=== PATIENT | male | born 1945 | race Caucasian/White ===

== ENCOUNTER 2020-09-06 22:13 | Emergency (ER) | payer MEDICARE ==
[2020-09-06 23:25] LABS: BASOPHILS % (AUTO) 0.9 % (0.0-5.0); EOSINOPHILS % (AUTO) 2.8 % (0.0-8.0); HEMATOCRIT 36.6 % (42-54); LYMPHOCYTES % (AUTO) 17.3 % (21.0-51.0); MEAN CORPUSCULAR HEMOGLOBIN 29.7 pg (27.0-33.0); MEAN CORPUSCULAR HGB CONC 34.4 g/dL (32.0-36.0); MEAN CORPUSCULAR VOLUME 86.3 fL (79-99); MONOCYTES % (AUTO) 7.1 % (3.0-13.0); NEUTROPHILS % (AUTO) 71.1 % (40.0-77.0); PLATELET COUNT (AUTO) 243 K/uL (130-400); RED BLOOD CELL COUNT(AUTO) 4.24 MIL/uL (4.50-6.20); RED CELL DISTRIBUTION WIDTH 13.3 % (11.0-15.5); WHITE BLOOD COUNT (AUTO) 11.4 K/uL (4.8-10.8)
[2020-09-06] MEDS ORDERED: SODIUM CHLORIDE 0.9% 50 ML IV ONE (23:42)
[2020-09-06] MEDS ORDERED: CEFTRIAXONE SODIUM 2 GM VIAL ONE (23:42)
[2020-09-06 23:43] LABS: B-TYPE NATRIURETIC PEPTIDE 9 pg/mL (0-100); POTASSIUM 3.8 mmol/L (3.5-5.1)
[2020-09-06 23:45] LABS: ALBUMIN 3.8 g/dL (3.5-5.0); BILIRUBIN,TOTAL 0.3 mg/dL (0.2-1.0); TOTAL PROTEIN, SERUM 6.6 g/dL (6.0-8.3)
== END 2020-09-07 00:23 | disposition home or self-care (01) ==
LOC: EDH 22:13
DX: L03.115 Cellulitis of right lower limb (principal); I10 Essential (primary) hypertension; K21.9 Gastro-esophageal reflux disease without esophagitis; Z87.891 Personal history of nicotine dependence; Z98.890 Other specified postprocedural states
CPT/HCPCS: 36415; 80053; 83605; 83880; 85025; 87040 ×2; 93970; 96365; 99284; J0696

== ENCOUNTER 2020-09-08 09:08 | Inpatient (IN) | payer MEDICARE ==
[~2020-09-08] VITALS: Ht 167.6 cm; Wt 79.8 kg
[2020-09-08 09:47] LABS: BASOPHILS % (AUTO) 0.7 % (0.0-5.0); EOSINOPHILS % (AUTO) 2.8 % (0.0-8.0); HEMATOCRIT 38.5 % (42-54); LYMPHOCYTES % (AUTO) 16.1 % (21.0-51.0); MEAN CORPUSCULAR HGB CONC 33.8 g/dL (32.0-36.0); MEAN CORPUSCULAR VOLUME 85.9 fL (79-99); MONOCYTES % (AUTO) 7.6 % (3.0-13.0); PLATELET COUNT (AUTO) 250 K/uL (130-400); RED BLOOD CELL COUNT(AUTO) 4.48 MIL/uL (4.50-6.20); RED CELL DISTRIBUTION WIDTH 13.3 % (11.0-15.5); WHITE BLOOD COUNT (AUTO) 11.6 K/uL (4.8-10.8)
[2020-09-08 10:53] LABS: POTASSIUM 3.7 mmol/L (3.5-5.1)
[2020-09-08 11:04] LABS: ALBUMIN 3.8 g/dL (3.5-5.0); BILIRUBIN,TOTAL 0.3 mg/dL (0.2-1.0); TOTAL PROTEIN, SERUM 6.6 g/dL (6.0-8.3)
[2020-09-08] MEDS ORDERED: LACTULOSE 20 GM/30 ML UDCUP PO PRN (11:15)
[2020-09-08] MEDS: CEFAZOLIN SODIUM 1 GM VIAL IVP SCH ×2 (11:15→19:15)
[2020-09-08] MEDS ORDERED: ACETAMINOPHEN 325 MG TAB PO PRN ×2 (11:15)
[2020-09-08] MEDS ORDERED: VANCOMYCIN 1G/250ML KIT 250 ML IV SCH (11:15)
[2020-09-08] MEDS ORDERED: ACETAMINOPHEN WITH CODEINE 1 TAB TAB PO PRN ×2 (11:15)
[2020-09-08] MEDS ORDERED: VANCOMYCIN PROTOCOL PER PHARMACY IV PRN (11:15)
[2020-09-08] MEDS ORDERED: ONDANSETRON 4MG INJ IV PRN (11:15)
[2020-09-08] MEDS ORDERED: ZOSYN 3.375GM+NS 50ML 50 ML IV ONE (11:17)
[2020-09-08] MEDS ORDERED: VANCOMYCIN 1G/250ML KIT 250 ML IV ONE (11:29)
[2020-09-08] MEDS ORDERED: CEFAZOLIN SODIUM 1 GM VIAL ONE (11:29)
[2020-09-08] MEDS ORDERED: VANCOMYCIN PROTOCOL PER PHARMACY IV SCH (11:30)
[2020-09-08] MEDS ORDERED: 0.9%NACL 50ML 50 ML IV ONE (11:30)
[2020-09-08 11:53] LABS: ALBUMIN 3.7 g/dL (3.5-5.0)
[2020-09-08] MEDS: VANCOMYCIN 1G/250ML KIT 250 ML IV SCH (12:00)
[2020-09-08 12:17] LABS: CRP QUANTITATIVE < 2.00 mg/L (0.00-9.0)
[2020-09-08 18:28] LABS: APPEARANCE,URINE Clear (CLEAR); BILIRUBIN,URINE Negative (NEGATIVE); COLOR,URINE Yellow (YELLOW); GLUCOSE, URINE (UA) Negative (NEGATIVE); KETONES,URINE Trace mg/dL (NEGATIVE); LEUKOCYTE ESTERASE ,URINE Negative (NEGATIVE); NITRATE,URINE Negative (NEGATIVE); OCCULT BLOOD,URINE Negative (NEGATIVE); PROTEIN,URINE Negative (NEGATIVE)
[2020-09-08] MEDS: FUROSEMIDE 20MG VIAL IV SCH (21:00)
[2020-09-08] MEDS: SIMVASTATIN 10 MG TABLET PO SCH (21:00)
[2020-09-08] MEDS: FAMOTIDINE 20MG TAB PO SCH (21:00)
[2020-09-08 22:25] VITALS: BP 208/80
[2020-09-08] MEDS ORDERED: LABETALOL 20MG SYG IV SCH (23:45)
[2020-09-08 23:50] VITALS: BP 178/74
[2020-09-09] MEDS ORDERED: HYDR-4457 PO (00:29)
[2020-09-09] MEDS ORDERED: 0.9% NACL 250ML 250 ML IV ONE (01:29)
[2020-09-09] MEDS ORDERED: HYDRALAZINE 25MG TABLET ONE (01:38)
[2020-09-09] MEDS: VANCOMYCIN 1G/250ML KIT 250 ML IV SCH ×2 (01:42→13:10)
[2020-09-09] MEDS ORDERED: HYDRALAZINE 25MG TABLET PO SCH (01:45)
[2020-09-09] MEDS: CEFAZOLIN SODIUM 1 GM VIAL IVP SCH ×3 (03:47→18:36)
[2020-09-09 04:29] VITALS: BP 144/63
[2020-09-09 07:53] VITALS: BP 189/62
[2020-09-09] MEDS ORDERED: AMLODIPINE 5 MG TAB PO SCH (09:00)
[2020-09-09] MEDS: MONTELUKAST SODIUM 10 MG TAB PO SCH (09:00)
[2020-09-09] MEDS: LISINOPRIL 40 MG TABLET PO SCH (09:01)
[2020-09-09] MEDS: HYDROCODONE/ACETAMINOPHEN 5/325 MG TAB PO PRN ×2 (09:01→20:17)
[2020-09-09] MEDS: ASPIRIN 325MG EC TAB PO SCH (09:01)
[2020-09-09] MEDS: PANTOPRAZOLE 40 MG TAB DR PO SCH (09:01)
[2020-09-09] MEDS: FUROSEMIDE 20MG VIAL IV SCH (09:01)
[2020-09-09] MEDS: FAMOTIDINE 20MG TAB PO SCH ×2 (09:01→20:16)
[2020-09-09] MEDS: ENOXAPARIN SODIUM 40 MG/0.4 ML SYRINGE SQ SCH (09:02)
[2020-09-09 11:30] VITALS: BP 188/83
[2020-09-09] MEDS ORDERED: FLUTICASONE PROPIONATE 50MCG/SPRAY 16 GM BOTTLE EN PRN (14:30)
[2020-09-09 16:00] VITALS: BP 185/82
[2020-09-09] MEDS ORDERED: HYDRALAZINE HCL 10 MG TABLET PO SCH (16:00)
[2020-09-09 20:10] VITALS: BP 148/72
[2020-09-09] MEDS: SIMVASTATIN 10 MG TABLET PO SCH (20:18)
[2020-09-09 23:14] VITALS: BP 148/72
[2020-09-10] MEDS: VANCOMYCIN 1G/250ML KIT 250 ML IV SCH (00:23)
[2020-09-10] MEDS: CEFAZOLIN SODIUM 1 GM VIAL IVP SCH ×3 (03:22→19:00)
[2020-09-10 04:52] LABS: BASOPHILS % (AUTO) 0.9 % (0.0-5.0); EOSINOPHILS % (AUTO) 3.7 % (0.0-8.0); HEMATOCRIT 40.5 % (42-54); MEAN CORPUSCULAR HEMOGLOBIN 28.9 pg (27.0-33.0); MEAN CORPUSCULAR HGB CONC 33.3 g/dL (32.0-36.0); MEAN CORPUSCULAR VOLUME 86.7 fL (79-99); MONOCYTES % (AUTO) 7.5 % (3.0-13.0); NEUTROPHILS % (AUTO) 72.4 % (40.0-77.0); PLATELET COUNT (AUTO) 284 K/uL (130-400); RED BLOOD CELL COUNT(AUTO) 4.67 MIL/uL (4.50-6.20); RED CELL DISTRIBUTION WIDTH 13.4 % (11.0-15.5); WHITE BLOOD COUNT (AUTO) 12.8 K/uL (4.8-10.8)
[2020-09-10 05:21] VITALS: BP 154/72
[2020-09-10 05:53] LABS: POTASSIUM 3.8 mmol/L (3.5-5.1)
[2020-09-10] MEDS ORDERED: COMPOUND IV REFRIGERATED 1 EACH IVSOLN MISC PRN (06:45)
[2020-09-10] MEDS: CLOTRIMAZOLE/BETAMETHASONE DIP 45 GM CREAM.GM. TP SCH (08:00)
[2020-09-10 09:31] VITALS: BP 173/89
[2020-09-10] MEDS: VANCOMYCIN 1G 1.25 GM in 0.9% NACL 250ML 250 ML IV SCH ×2 (09:38→21:03)
[2020-09-10] MEDS: ASPIRIN 325MG EC TAB PO SCH (09:39)
[2020-09-10] MEDS: AMLODIPINE 5 MG TAB PO SCH (09:39)
[2020-09-10] MEDS: FAMOTIDINE 20MG TAB PO SCH ×2 (09:40→21:03)
[2020-09-10] MEDS: LISINOPRIL 40 MG TABLET PO SCH (09:41)
[2020-09-10] MEDS: MONTELUKAST SODIUM 10 MG TAB PO SCH (09:41)
[2020-09-10] MEDS: PANTOPRAZOLE 40 MG TAB DR PO SCH (09:41)
[2020-09-10] MEDS: ENOXAPARIN SODIUM 40 MG/0.4 ML SYRINGE SQ SCH (09:42)
[2020-09-10] MEDS: HYDROCODONE/ACETAMINOPHEN 5/325 MG TAB PO PRN ×2 (09:48→19:26)
[2020-09-10 11:40] VITALS: BP 172/84
[2020-09-10 18:58] VITALS: BP 157/63
[2020-09-10] MEDS: SIMVASTATIN 10 MG TABLET PO SCH (21:03)
[2020-09-10 21:14] VITALS: BP 157/63
[2020-09-11] MEDS: CEFAZOLIN SODIUM 1 GM VIAL IVP SCH ×2 (03:33→11:47)
[2020-09-11 03:58] VITALS: BP 168/78
[2020-09-11 04:07] LABS: EOSINOPHILS % (AUTO) 4.2 % (0.0-8.0); HEMATOCRIT 40.7 % (42-54); LYMPHOCYTES % (AUTO) 16.3 % (21.0-51.0); MEAN CORPUSCULAR HEMOGLOBIN 28.9 pg (27.0-33.0); MEAN CORPUSCULAR HGB CONC 32.9 g/dL (32.0-36.0); MEAN CORPUSCULAR VOLUME 87.7 fL (79-99); MONOCYTES % (AUTO) 6.6 % (3.0-13.0); NEUTROPHILS % (AUTO) 71.3 % (40.0-77.0); PLATELET COUNT (AUTO) 291 K/uL (130-400); RED BLOOD CELL COUNT(AUTO) 4.64 MIL/uL (4.50-6.20); RED CELL DISTRIBUTION WIDTH 13.4 % (11.0-15.5); WHITE BLOOD COUNT (AUTO) 12.1 K/uL (4.8-10.8)
[2020-09-11] MEDS ORDERED: KETOROLAC 30MG VIAL (30MG/ML) ONE (04:13)
[2020-09-11] MEDS ORDERED: KETOROLAC 15MG/ML VIAL (15MG/ML) IV SCH (04:15)
[2020-09-11 04:17] LABS: CARBON DIOXIDE 29 mmol/L (21-32); CHLORIDE 101 mmol/L (101-111); GLOMERULAR FILTR. RATE CALC 78 mL/min (>60); GLUCOSE,RANDOM 99 mg/dL (70-105); POTASSIUM 3.9 mmol/L (3.5-5.1); SODIUM SERUM 139 mmol/L (136-145); UREA NITROGEN, BLOOD 11 mg/dL (7-18)
[2020-09-11] MEDS ORDERED: KETOROLAC 30MG VIAL (30MG/ML) IV SCH (04:30)
[2020-09-11] MEDS: HYDROCODONE/ACETAMINOPHEN 5/325 MG TAB PO PRN (04:30)
[2020-09-11 05:24] LABS: ERYTHROCYTE SEDIMENTATION RATE 4 MM/HR (0-20)
[2020-09-11] MEDS: CLOTRIMAZOLE/BETAMETHASONE DIP 45 GM CREAM.GM. TP SCH (08:00)
[2020-09-11 08:39] VITALS: BP 197/98
[2020-09-11] MEDS: ENOXAPARIN SODIUM 40 MG/0.4 ML SYRINGE SQ SCH (09:00)
[2020-09-11] MEDS: LISINOPRIL 40 MG TABLET PO SCH (09:25)
[2020-09-11] MEDS: ASPIRIN 325MG EC TAB PO SCH (09:25)
[2020-09-11] MEDS: MONTELUKAST SODIUM 10 MG TAB PO SCH (09:25)
[2020-09-11] MEDS: AMLODIPINE 5 MG TAB PO SCH (09:25)
[2020-09-11] MEDS: FAMOTIDINE 20MG TAB PO SCH (09:26)
[2020-09-11] MEDS: PANTOPRAZOLE 40 MG TAB DR PO SCH (09:26)
[2020-09-11] MEDS: VANCOMYCIN 1G 1.25 GM in 0.9% NACL 250ML 250 ML IV SCH (09:35)
[2020-09-11 12:08] VITALS: BP 144/83
[2020-09-11] MEDS ORDERED: LISI40TA9 PO (13:45)
[2020-09-11] MEDS ORDERED: DOXY100C5 PO (13:47)
[2020-09-11] MEDS ORDERED: CEPH500B PO (13:47)
[2020-09-11] MEDS ORDERED: AMLO-258 PO (13:47)
== END 2020-09-11 16:20 | disposition home or self-care (01) | DRG 603 ==
LOC: EDH 09:08 → EDHIP 11:02 → 3CH 22:29
PROVIDERS: ADMIT Internal Medicine; ATTEND Internal Medicine
DX: L03.115 Cellulitis of right lower limb (principal); I10 Essential (primary) hypertension; E66.9 Obesity, unspecified; E78.5 Hyperlipidemia, unspecified; G89.4 Chronic pain syndrome; K21.9 Gastro-esophageal reflux disease without esophagitis; M54.9 Dorsalgia, unspecified; R53.81 Other malaise; Z68.28 Body mass index [BMI] 28.0-28.9, adult; Z79.891 Long term (current) use of opiate analgesic; Z87.891 Personal history of nicotine dependence; Z79.899 Other long term (current) drug therapy; Z20.822 Contact with and (suspected) exposure to COVID-19
CPT/HCPCS: 36415; 73590; 80048; 80053; 80202; 81003; 82040; 83605; 83880; 84145; 85025; 85651; 86140; 87040; 87070; 87076; 87426; 93970; 93971; 96365; G0378; J0690; J0696; J1650; J1885; J1940; J2543; J3370; J7050; U0003

== ENCOUNTER 2020-09-14 11:18 | Emergency (ER) | payer MEDICARE ==
[~2020-09-14 11:18] MED LIST: AMLO-258 PO; CEPH500B PO; DOXY100C5 PO; HYDR-4457 PO; LISI40TA9 PO
[2020-09-14] MEDS ORDERED: FAMOTIDINE 20MG TAB ONE (11:47)
[2020-09-14] MEDS ORDERED: SOLU-MEDROL 125MG VIAL ONE (11:48)
[2020-09-14] MEDS ORDERED: DIPHENHYDRAMINE HCL 25 MG CAPSULE ONE (11:48)
[2020-09-14 12:56] LABS: BASOPHILS % (AUTO) 0.8 % (0.0-5.0); HEMATOCRIT 41.3 % (42-54); LYMPHOCYTES % (AUTO) 18.1 % (21.0-51.0); MEAN CORPUSCULAR HEMOGLOBIN 29.6 pg (27.0-33.0); MEAN CORPUSCULAR HGB CONC 33.9 g/dL (32.0-36.0); MEAN CORPUSCULAR VOLUME 87.3 fL (79-99); MONOCYTES % (AUTO) 7.1 % (3.0-13.0); NEUTROPHILS % (AUTO) 67.4 % (40.0-77.0); PLATELET COUNT (AUTO) 325 K/uL (130-400); RED BLOOD CELL COUNT(AUTO) 4.73 MIL/uL (4.50-6.20); RED CELL DISTRIBUTION WIDTH 13.3 % (11.0-15.5)
[2020-09-14 13:05] LABS: POTASSIUM 4.8 mmol/L (3.5-5.1)
[2020-09-14 13:10] LABS: ALBUMIN 3.9 g/dL (3.5-5.0); BILIRUBIN,TOTAL 0.3 mg/dL (0.2-1.0); TOTAL PROTEIN, SERUM 6.7 g/dL (6.0-8.3)
== END 2020-09-14 13:32 | disposition home or self-care (01) ==
LOC: EDH 11:18
DX: L29.9 Pruritus, unspecified (principal); L03.115 Cellulitis of right lower limb; K21.9 Gastro-esophageal reflux disease without esophagitis; I10 Essential (primary) hypertension; Z87.891 Personal history of nicotine dependence
CPT/HCPCS: 36415; 80053; 85025; 96372; 99283; J2930; Q0163

== ENCOUNTER 2020-10-25 08:33 | Inpatient (IN) | payer MEDICARE ==
[~2020-10-25] VITALS: Ht 167.6 cm; Wt 80.6 kg
[2020-10-25 09:02] LABS: BASOPHILS % (AUTO) 0.3 % (0.0-5.0); HEMATOCRIT 35.5 % (42-54); LYMPHOCYTES % (AUTO) 2.8 % (21.0-51.0); MEAN CORPUSCULAR HEMOGLOBIN 28.7 pg (27.0-33.0); MEAN CORPUSCULAR HGB CONC 33.5 g/dL (32.0-36.0); MEAN CORPUSCULAR VOLUME 85.5 fL (79-99); MONOCYTES % (AUTO) 5.5 % (3.0-13.0); NEUTROPHILS % (AUTO) 90.4 % (40.0-77.0); PLATELET COUNT (AUTO) 284 K/uL (130-400); RED BLOOD CELL COUNT(AUTO) 4.15 MIL/uL (4.50-6.20); RED CELL DISTRIBUTION WIDTH 13.3 % (11.0-15.5); WHITE BLOOD COUNT (AUTO) 27.2 K/uL (4.8-10.8)
[2020-10-25] MEDS ORDERED: LEVOFLOXACIN 500 MG/D5W 100 ML 100 ML ONE (09:14)
[2020-10-25 09:16] LABS: ALBUMIN 3.7 g/dL (3.5-5.0); BILIRUBIN,TOTAL 0.5 mg/dL (0.2-1.0); CREATININE 1.2 mg/dL (0.5-1.5); INR 1.05 (0.85-1.15); POTASSIUM 3.9 mmol/L (3.5-5.1); PROTHROMBIN TIME 11.4 SEC (9.6-11.6); TOTAL PROTEIN, SERUM 7.2 g/dL (6.0-8.3)
[2020-10-25 09:18] LABS: PARTIAL THROMBOPLASTIN TIME 24.6 SEC (26.3-35.5)
[2020-10-25] MEDS: 0.9%NACL 1000ML 1,000 ML IV SCH (13:00)
[2020-10-25] MEDS ORDERED: DiphenhydrAMINE HCL 50 MG/ML VIAL IV PRN (13:00)
[2020-10-25] MEDS ORDERED: ONDANSETRON 4MG INJ IV PRN (13:00)
[2020-10-25] MEDS ORDERED: MORPHINE 2 MG SYG IV PRN (13:00)
[2020-10-25] MEDS ORDERED: DIPHENHYDRAMINE HCL 25 MG CAPSULE PO PRN (13:00)
[2020-10-25] MEDS ORDERED: ACETAMINOPHEN 325 MG TAB PO PRN ×2 (13:00)
[2020-10-25] MEDS: CLINDAMYCIN IVPB 300MG/50ML 50 ML IV SCH ×2 (13:15→19:57)
[2020-10-25] MEDS ORDERED: LEVOFLOXACIN 500 MG/D5W 100 ML 100 ML IV SCH (13:15)
[2020-10-25 13:25] LABS: HEMOGLOBIN A1C 5.8 % (4.0-6.0)
[2020-10-25] MEDS ORDERED: CLINDAMYCIN IVPB 300MG/50ML 50 ML IV ONE (14:52)
[2020-10-25 18:45] VITALS: BP 158/72
[2020-10-25] MEDS: FAMOTIDINE 20MG VIAL IV SCH (19:57)
[2020-10-25] MEDS ORDERED: SIMV10TA97 PO (21:56)
[2020-10-25] MEDS ORDERED: TRIAM15CRM TP (21:56)
[2020-10-25] MEDS ORDERED: CLOT15CR5 TP (21:56)
[2020-10-25] MEDS ORDERED: PANT40TA PO (21:56)
[2020-10-25] MEDS ORDERED: ASPI-891 PO (21:56)
[2020-10-25] MEDS ORDERED: MELO-108 PO (21:56)
[2020-10-25] MEDS ORDERED: VANCOMYCIN PROTOCOL PER PHARMACY IV PRN (23:45)
[2020-10-26] VITALS: BP 123/53
[2020-10-26] MEDS: MEROPENEM 500 MG VIAL IVP SCH ×3 (00:32→16:13)
[2020-10-26] MEDS: 0.9%NACL 1000ML 1,000 ML IV SCH ×3 (00:32→22:05)
[2020-10-26 00:49] LABS: APPEARANCE,URINE Clear (CLEAR); BILIRUBIN,URINE Negative (NEGATIVE); COLOR,URINE Yellow (YELLOW); GLUCOSE, URINE (UA) Negative (NEGATIVE); KETONES,URINE Negative (NEGATIVE); LEUKOCYTE ESTERASE ,URINE Trace (NEGATIVE); NITRATE,URINE Negative (NEGATIVE); OCCULT BLOOD,URINE Negative (NEGATIVE); PH,URINE 7.5 (5.0-8.0); PROTEIN,URINE Negative (NEGATIVE)
[2020-10-26 01:03] LABS: BACTERIA,URINE None Seen /HPF (None Seen); RBC,URINE 0-1 /HPF (0-1); SQUAMOUS EPITHELIAL CELL,UR 0-2 /HPF (0-2); WBC,URINE 0-1 /HPF (0-1)
[2020-10-26] MEDS ORDERED: VANCOMYCIN 1G/250ML KIT 250 ML IV SCH (02:00)
[2020-10-26 03:54] VITALS: BP 133/66
[2020-10-26 05:39] LABS: BASOPHILS % (AUTO) 0.5 % (0.0-5.0); EOSINOPHILS % (AUTO) 0.3 % (0.0-8.0); HEMATOCRIT 31.7 % (42-54); LYMPHOCYTES % (AUTO) 6.8 % (21.0-51.0); MEAN CORPUSCULAR HEMOGLOBIN 28.7 pg (27.0-33.0); MEAN CORPUSCULAR HGB CONC 32.5 g/dL (32.0-36.0); MEAN CORPUSCULAR VOLUME 88.3 fL (79-99); MONOCYTES % (AUTO) 5.4 % (3.0-13.0); NEUTROPHILS % (AUTO) 86.4 % (40.0-77.0); PLATELET COUNT (AUTO) 250 K/uL (130-400); RED BLOOD CELL COUNT(AUTO) 3.59 MIL/uL (4.50-6.20); RED CELL DISTRIBUTION WIDTH 13.5 % (11.0-15.5); WHITE BLOOD COUNT (AUTO) 21.7 K/uL (4.8-10.8)
[2020-10-26 06:05] LABS: ALBUMIN 2.9 g/dL (3.5-5.0); BILIRUBIN,TOTAL 0.6 mg/dL (0.2-1.0); CREATININE 1.2 mg/dL (0.5-1.5); TOTAL PROTEIN, SERUM 6.2 g/dL (6.0-8.3)
[2020-10-26 08:52] VITALS: BP 156/65
[2020-10-26] MEDS: FAMOTIDINE 20MG VIAL IV SCH ×2 (09:39→22:05)
[2020-10-26] MEDS: ENOXAPARIN SODIUM 30 MG/0.3 ML SQ SCH (09:46)
[2020-10-26] MEDS ORDERED: COMPOUND IV REFRIGERATED 1 EACH IVSOLN MISC PRN (10:00)
[2020-10-26 11:47] VITALS: BP 137/72
[2020-10-26] MEDS: HYDROCODONE/ACETAMINOPHEN 5/325 MG TAB PO PRN (16:18)
[2020-10-26 17:09] VITALS: BP 142/59
[2020-10-26 20:57] VITALS: BP 125/76
[2020-10-26] MEDS: SIMVASTATIN 10 MG TABLET PO SCH (22:04)
[2020-10-27] MEDS: MEROPENEM 500 MG VIAL IVP SCH ×4 (00:02→23:32)
[2020-10-27 00:22] VITALS: BP 128/61
[2020-10-27 05:05] LABS: BASOPHILS % (AUTO) 0.5 % (0.0-5.0); EOSINOPHILS % (AUTO) 0.9 % (0.0-8.0); HEMATOCRIT 30.4 % (42-54); LYMPHOCYTES % (AUTO) 9.5 % (21.0-51.0); MEAN CORPUSCULAR HEMOGLOBIN 28.4 pg (27.0-33.0); MEAN CORPUSCULAR HGB CONC 32.6 g/dL (32.0-36.0); MEAN CORPUSCULAR VOLUME 87.1 fL (79-99); NEUTROPHILS % (AUTO) 82.3 % (40.0-77.0); PLATELET COUNT (AUTO) 223 K/uL (130-400); RED BLOOD CELL COUNT(AUTO) 3.49 MIL/uL (4.50-6.20); RED CELL DISTRIBUTION WIDTH 13.5 % (11.0-15.5)
[2020-10-27 05:26] LABS: ALBUMIN 2.7 g/dL (3.5-5.0); BILIRUBIN,TOTAL 0.4 mg/dL (0.2-1.0); CREATININE 1.2 mg/dL (0.5-1.5); POTASSIUM 4.7 mmol/L (3.5-5.1); TOTAL PROTEIN, SERUM 6.5 g/dL (6.0-8.3)
[2020-10-27 06:11] VITALS: BP 146/69
[2020-10-27 07:41] VITALS: BP 144/78
[2020-10-27] MEDS: ASPIRIN 325MG EC TAB PO SCH (08:00)
[2020-10-27] MEDS: FAMOTIDINE 20MG VIAL IV SCH ×2 (08:01→22:08)
[2020-10-27] MEDS: LISINOPRIL 40 MG TABLET PO SCH (08:01)
[2020-10-27] MEDS: VANCOMYCIN 1G 1.25 GM in 0.9% NACL 250ML 250 ML IV SCH (10:48)
[2020-10-27] MEDS: ENOXAPARIN SODIUM 30 MG/0.3 ML SQ SCH (10:49)
[2020-10-27 11:37] VITALS: BP 146/62
[2020-10-27] MEDS: HYDROCODONE/ACETAMINOPHEN 5/325 MG TAB PO PRN (15:25)
[2020-10-27 15:47] VITALS: BP 146/77
[2020-10-27 21:17] VITALS: BP 144/59
[2020-10-27] MEDS: SIMVASTATIN 10 MG TABLET PO SCH (22:08)
[2020-10-28] VITALS (12 sets, daily range): BP systolic 113–159; BP diastolic 41–86
[2020-10-28] MEDS: 0.9%NACL 1000ML 1,000 ML IV SCH (02:44)
[2020-10-28 06:09] LABS: BASOPHILS % (AUTO) 0.6 % (0.0-5.0); HEMATOCRIT 30.5 % (42-54); LYMPHOCYTES % (AUTO) 9.7 % (21.0-51.0); MEAN CORPUSCULAR HEMOGLOBIN 28.7 pg (27.0-33.0); MEAN CORPUSCULAR HGB CONC 33.4 g/dL (32.0-36.0); MEAN CORPUSCULAR VOLUME 85.7 fL (79-99); MONOCYTES % (AUTO) 7.1 % (3.0-13.0); NEUTROPHILS % (AUTO) 80.5 % (40.0-77.0); PLATELET COUNT (AUTO) 231 K/uL (130-400); RED BLOOD CELL COUNT(AUTO) 3.56 MIL/uL (4.50-6.20); RED CELL DISTRIBUTION WIDTH 13.2 % (11.0-15.5); WHITE BLOOD COUNT (AUTO) 12.3 K/uL (4.8-10.8)
[2020-10-28 06:24] LABS: ALBUMIN 2.8 g/dL (3.5-5.0); BILIRUBIN,TOTAL 0.5 mg/dL (0.2-1.0); POTASSIUM 3.9 mmol/L (3.5-5.1); TOTAL PROTEIN, SERUM 6.4 g/dL (6.0-8.3)
[2020-10-28] MEDS ORDERED: LIDOCAINE HCL 2% VISCOUS 15 ML UDCUP ONE (08:32)
[2020-10-28] MEDS ORDERED: 0.9%NACL 1000ML 1,000 ML IV ONE (08:33)
[2020-10-28] MEDS ORDERED: MIDAZOLAM HCL 1 MG/ML 2ML VIAL ONE ×2 (08:51→10:44)
[2020-10-28] MEDS ORDERED: FENTANYL CITRATE PF 50 MCG/1 ML 2ML VIAL ONE (08:51)
[2020-10-28] MEDS: ENOXAPARIN SODIUM 30 MG/0.3 ML SQ SCH (09:00)
[2020-10-28] MEDS ORDERED: FLUMAZENIL 0.1MG/1ML 5ML VIAL IV ONE (10:44)
[2020-10-28] MEDS: MEROPENEM 500 MG VIAL IVP SCH ×2 (11:55→18:15)
[2020-10-28] MEDS: HYDROCODONE/ACETAMINOPHEN 5/325 MG TAB PO PRN ×2 (11:56→13:44)
[2020-10-28] MEDS: FAMOTIDINE 20MG VIAL IV SCH ×2 (11:56→20:35)
[2020-10-28] MEDS: ASPIRIN 325MG EC TAB PO SCH (11:56)
[2020-10-28] MEDS: LISINOPRIL 40 MG TABLET PO SCH (11:57)
[2020-10-28] MEDS: VANCOMYCIN 1G 1.25 GM in 0.9% NACL 250ML 250 ML IV SCH (13:46)
[2020-10-28] MEDS: SIMVASTATIN 10 MG TABLET PO SCH (20:35)
[2020-10-29] VITALS: BP 109/81
[2020-10-29] MEDS: MEROPENEM 500 MG VIAL IVP SCH ×3 (00:13→16:41)
[2020-10-29] MEDS: HYDROCODONE/ACETAMINOPHEN 5/325 MG TAB PO PRN ×2 (00:20→14:42)
[2020-10-29 04:00] VITALS: BP 161/60
[2020-10-29 06:00] LABS: BASOPHILS % (AUTO) 0.8 % (0.0-5.0); EOSINOPHILS % (AUTO) 0.9 % (0.0-8.0); HEMATOCRIT 33.5 % (42-54); LYMPHOCYTES % (AUTO) 17.6 % (21.0-51.0); MEAN CORPUSCULAR HEMOGLOBIN 28.5 pg (27.0-33.0); MEAN CORPUSCULAR HGB CONC 33.1 g/dL (32.0-36.0); MEAN CORPUSCULAR VOLUME 85.9 fL (79-99); MONOCYTES % (AUTO) 7.4 % (3.0-13.0); NEUTROPHILS % (AUTO) 71.9 % (40.0-77.0); PLATELET COUNT (AUTO) 264 K/uL (130-400); RED CELL DISTRIBUTION WIDTH 13.4 % (11.0-15.5); WHITE BLOOD COUNT (AUTO) 10.7 K/uL (4.8-10.8)
[2020-10-29 06:20] LABS: ALBUMIN 2.9 g/dL (3.5-5.0); BILIRUBIN,TOTAL 0.5 mg/dL (0.2-1.0); POTASSIUM 4.2 mmol/L (3.5-5.1); TOTAL PROTEIN, SERUM 7.1 g/dL (6.0-8.3)
[2020-10-29 08:00] VITALS: BP 155/79
[2020-10-29] MEDS: ASPIRIN 325MG EC TAB PO SCH (08:31)
[2020-10-29] MEDS: FAMOTIDINE 20MG VIAL IV SCH (08:32)
[2020-10-29] MEDS: LISINOPRIL 40 MG TABLET PO SCH (08:32)
[2020-10-29] MEDS: ENOXAPARIN SODIUM 30 MG/0.3 ML SQ SCH (08:49)
[2020-10-29] MEDS ORDERED: VANCOMYCIN 1G 1.25 GM in 0.9% NACL 250ML 250 ML IV SCH (10:45)
[2020-10-29 11:41] VITALS: BP 159/63
[2020-10-29] MEDS ORDERED: LEVO500T90 PO (15:29)
[2020-10-29 16:00] VITALS: BP 177/69
== END 2020-10-29 18:30 | disposition home health service (06) | DRG 871 ==
LOC: EDH 08:33 → EDHIP 12:51 → UNDOADMIN 12:54 → EDHIP 12:54 → 3DH 18:35
PROVIDERS: ADMIT Internal Medicine; ATTEND Internal Medicine
PROC: B246ZZ4 Ultrasonography of Right and Left Heart, Transesophageal (ICD-10-PCS; principal; 2020-10-28)
DX: A41.9 Sepsis, unspecified organism (principal); J15.6 Pneumonia due to other Gram-negative bacteria; L03.116 Cellulitis of left lower limb; L03.115 Cellulitis of right lower limb; E78.5 Hyperlipidemia, unspecified; B96.89 Other specified bacterial agents as the cause of diseases classified elsewhere; D64.9 Anemia, unspecified; G89.4 Chronic pain syndrome; R53.81 Other malaise; I10 Essential (primary) hypertension; I34.0 Nonrheumatic mitral (valve) insufficiency; K21.00 Gastro-esophageal reflux disease with esophagitis, without bleeding; B95.5 Unspecified streptococcus as the cause of diseases classified elsewhere; Z20.822 Contact with and (suspected) exposure to COVID-19; Z87.891 Personal history of nicotine dependence; Z79.891 Long term (current) use of opiate analgesic; Z88.8 Allergy status to other drugs, medicaments and biological substances; Z82.3 Family history of stroke; Z80.9 Family history of malignant neoplasm, unspecified; Z82.0 Family history of epilepsy and other diseases of the nervous system; Z82.49 Family history of ischemic heart disease and other diseases of the circulatory system
CPT/HCPCS: 36415; 71045; 74176; 80053; 80202; 81001; 82550; 83036; 83605; 83880; 84145; 84484; 85025; 85378; 85610; 85651; 85730; 86140; 86738; 87040; 87077; 87186; 87426; 87449; 93005; 93306; 93313; 93356; 99152; 99153; G0378; J1650; J1956; J2185; J2250; J3010; J3370; J3490; J7030; J7050; U0003